=== PATIENT | female | born 1970 | race American Indian/Alaskan Native ===

== ENCOUNTER 2020-04-18 14:37 | Emergency (ER) | payer SELFPAY ==
[2020-04-18 15:10] VITALS: BP 130/94
[2020-04-18] MEDS ORDERED: IBUPROFEN 600 MG TAB PO ONE (15:12)
--- NOTE | 2020-04-18 15:13 | Event Note ---
ED Screening Note Date of service: 04/18/20 Time: 15:09 ED Screening Note: 50-year-old -Turkmen female presents to the emergency room complaining of right knee and right foot pain status post slip and fall today. Patient admits that she has a history of arthritis. She has not taken anything for pain at this time. This initial assessment/diagnostic orders/clinical plan/treatment(s) is/are subject to change based on patients health status, clinical progression and re- assessment by fellow clinical providers in the ED. Further treatment and workup at subsequent clinical providers discretion. Patient/guardian urged not to elope from the ED as their condition may be serious if not clinically assessed and managed. Initial orders include:
--- NOTE | 2020-04-18 16:15 | XRay Report ---
RIGHT FOOT 3 VIEW(S) INDICATION / CLINICAL INFORMATION: fall rt foot COMPARISON: None available. FINDINGS: BONES / JOINT(S): No acute fracture or subluxation. Moderate degenerative arthrosis first MTP joint SOFT TISSUES: No significant abnormality. ADDITIONAL FINDINGS: None. Signer Name: Adriano Lopez MD Signed: 04/18/2020 4:11 PM Workstation Name: [id number]
--- NOTE | 2020-04-18 16:26 | XRay Report ---
RIGHT KNEE 3 VIEW(S) INDICATION / CLINICAL INFORMATION: fell on rt knee COMPARISON: None available. FINDINGS: BONES / JOINT(S): No acute fracture or subluxation. Moderate tricompartmental degenerative arthrosis SOFT TISSUES: No significant abnormality. ADDITIONAL FINDINGS: None. Signer Name: Adriano Lopez MD Signed: 04/18/2020 4:22 PM Workstation Name: [id number]
--- NOTE | 2020-04-18 17:10 | Emergency Department Report ---
ED Fall HPI - General Chief Complaint: Fall Stated Complaint: RT FOOT/RT KNEE INJURY/PAIN Time Seen by Provider: 04/18/20 17:09 Source: patient Mode of arrival: Wheelchair - History of Present Illness Initial Comments: Patient is a very pleasant 50-year-old -[place] female who comes to the ER after having an incident today at home where she was attempting to stand on a chair. She did so with her left foot and she was attempting to pull her right foot up. When the tip of her right toe fell off of the chair jarring her to the floor patient did not fall per se. Patient does have a history of arthritis of the knee. She takes magnesium vitamin D and glucosamine at home. He is ambulatory with a limp to the emergency room. She is however neurovascularly and peripheral vascularly intact. MD Complaint: fall -: Sudden Fall From: standing When Fall Occurred: 1-3 hours [employer]ITE [employer] Fall Witnessed: yes, by family Place Fall Occurred: home Loss of Consciousness: none Prolonged Down Time?: no Symptoms Prior to Fall: none Location: other (Right knee and foot) Location - Extremities: Right: Knee, Foot Severity: mild Quality: aching Context: other Associated Symptoms: denies - Related Data Previous Rx's Medication Instructions Recorded Last Taken Type Naproxen [Naprosyn] 500 mg PO BID PRN #20 tablet 04/18/20 Unknown Rx Allergies Allergy/AdvReac Type Severity Reaction Status Date / Time No Known Allergies Allergy Verified 03/20/14 01:09 ED Review of Systems ROS: Stated complaint: RT FOOT/RT KNEE INJURY/PAIN Other details as noted in HPI Comment: All other systems reviewed and negative ED Past Medical Hx - Past Medical History Previous Medical History?: Yes Hx Arthritis: Yes - Surgical History Past Surgical History?: No - Family History Family history: no significant - Social History Smoking Status: Never Smoker Substance Use Type: None - Medications Home Medications: Home Medications Medication Instructions Recorded Confirmed Last Taken Type Naproxen [Naprosyn] 500 mg PO BID PRN #20 tablet 04/18/20 Unknown Rx ED Physical Exam - General Limitations: No Limitations General appearance: alert, in no apparent distress - Head Head exam: Present: atraumatic, normocephalic - Eye Eye exam: Present: normal appearance - ENT ENT exam: Present: mucous membranes moist - Neck Neck exam: Present: normal inspection - Respiratory Respiratory exam: Present: normal lung sounds bilaterally. Absent: respiratory distress - Cardiovascular Cardiovascular Exam: Present: regular rate, normal rhythm. Absent: systolic murmur, diastolic murmur, rubs, gallop - GI/Abdominal GI/Abdominal exam: Present: soft, normal bowel sounds - Extremities Exam Extremities exam: Present: normal inspection - Expanded Lower Extremity Exam Right Hip exam: Present: normal inspection Upper Leg exam: Present: normal inspection, full ROM. Absent: tenderness, swelling, abrasion, laceration, ecchymosis, deformity, crepidus, dislocation, erythema Knee exam: Present: full ROM, swelling, effusion, full knee extension. Absent: tenderness, abrasion, laceration, ecchymosis, deformity, crepidus, dislocation, erythema, pain w/ pronation/supination, posterior draw sign, pain/laxity with valgus, pain/laxity with varus Lower Leg exam: Present: normal inspection, full ROM. Absent: tenderness, swelling, abrasion, laceration, ecchymosis, deformity, crepidus, dislocation, erythema, palpable cord, Lis's sign Ankle exam: Present: normal inspection Foot/Toe exam: Present: normal inspection, full ROM. Absent: tenderness, swelling, abrasion, laceration, ecchymosis, deformity, crepidus, dislocation, erythema, amputation, puncture wound, foreign body, calcaneal tenderness, tenderness at base of 5th metatarsal, nail avulsion Neuro vascular tendon exam: Present: no vascular compromise Gait: Positive: observed and limited by pain - Back Exam Back exam: Present: normal inspection - Neurological Exam Neurological exam: Present: alert, oriented X3 - Psychiatric Psychiatric exam: Present: normal affect, normal mood - Skin Skin exam: Present: warm, dry, intact, normal color. Absent: rash ED Course Vital Signs 04/18/20 15:04 Temperature 98.1 F Pulse Rate 94 H Respiratory 18 Rate Blood Pressure 130/94 O2 Sat by Pulse 100 Oximetry ED Medical Decision Making - Radiology Data Radiology results: report reviewed, image reviewed nap - Medical Decision Making xray neg for fracture. Patient does have a small effusion of the right knee. It is inferior to the patella and lateral. It is minor. There is no ecchymosis, laceration or bruising. Patient is complaining of heel pain. There is no ecchymosis or laceration. ambulatory with limp distal perfusion intact toradol IM for discomfort crutches for safety for patient is morbidly obese and is hobbling with her attempts to ambulate. I explained to her that she needs to use these crutches for only a short time and as she feels better over the next couple days she should continue to bear weight. dc home with ortho follow up. pt verbalizes understanding. Vital Signs 04/18/20 15:04 Temperature 98.1 F Pulse Rate 94 H Respiratory 18 Rate Blood Pressure 130/94 O2 Sat by Pulse 100 Oximetry - Differential Diagnosis ro fx Critical care attestation.: If time is entered above; I have spent that time in minutes in the direct care of this critically ill patient, excluding procedure time. ED Disposition Clinical Impression: Fall, Knee pain, Heel pain, Knee effusion Disposition: DC-01 TO HOME OR SELFCARE Is pt being admited?: No Does the pt Need Aspirin: No Condition: Stable Instructions: Acute Knee Pain, Adult Additional Instructions: warm compresses crutches as we discussed meds as ordered follow up with ortho doctor if persists referral below diet as tolerated Referrals: GATO VILLALTA MD [Staff Physician] - 3-5 Days Time of Disposition: 17:16
[2020-04-18] MEDS ORDERED: KETOROLAC 60 MG/2 ML INJ IM ONE (17:16)
== END 2020-04-18 18:05 | disposition home or self-care (01) ==
LOC: ED 14:37
DX: M25.461 Effusion, right knee (principal); M79.672 Pain in left foot; M19.90 Unspecified osteoarthritis, unspecified site; Z79.899 Other long term (current) drug therapy
CPT/HCPCS: 73562; 73630; 96372; 99283; J1885